=== PATIENT | male | born 1940 ===

== ENCOUNTER 2016-11-30 12:52 | Day surgery (SDC) | payer OTHER ==
[2016-11-29 14:12] VITALS: BMI 28.3
[2016-11-30] MEDS ORDERED: Iodixanol 320 MG/ML 100 ML BOTTLE IV ONE (14:47)
[2016-11-30] MEDS ORDERED: Midazolam 2 MG/2 ML VIAL ONE (15:37)
--- NOTE | 2016-12-01 03:12 | CARDCATH ---
PROCEDURE DATE: 11/30/2016 INDICATIONS: Mr. Leon Haskins is a 76-year-old male with past medical history significant for hypertension, diabetes, and hyperlipidemia, who presented to [facility] with complaints of chest pain, exertional in nature ongoing for about two weeks prior to presentation accompanied with shortness of breath. PROCEDURE PERFORMED: Left heart catheterization with selective left and right coronary angiogram. Left ventriculogram, 6-Tristanian right femoral arterial access, Mynx closure device for hemostasis. TECHNIQUES OF PROCEDURE: After obtaining informed consent, the patient was brought to the cardiac catheterization suite in post-absorptive, non-sedated state. The patient was prepped and draped in the usual sterile fashion. A 2% lidocaine was used for infiltration of anesthesia. Using modified Seldinger technique, a 6-Tristanian sheath was introduced into the right femoral artery. Subsequently, over a J-wire, JL-4 and JR-4 diagnostic catheters were used to engage the left and right coronary systems. Angiograms were obtained in different orthogonal views. Subsequently over the J-wire, the pigtail catheter was advanced into the LV and LV gram was obtained in the AGUILAR view. HEMODYNAMICS: Left ventricular end-diastolic pressure was 22 mmHg. There was no gradient noted upon the aortic valve. There was no AI and no PR. Left ventricular ejection fraction estimated to be 50% to . CORONARY ANATOMY: The left main large-sized vessel, bifurcates into left anterior descending and left circumflex coronary artery. Left anterior descending artery, large-size vessel, has mid 75% stenosis after the first diagonal branch. The first diagonal branch has ostial 50% stenosis. Left circumflex, large size vessel, is severely ectatic with JAVIER 2 flow, gives three obtuse marginal branches left dominant circulation. Right coronary artery, small, nondominant with patent stents. IMPRESSION: Severe mid left anterior descending stenosis. RECOMMENDATIONS: The patient is to continue dual-antiplatelet therapy, guideline-directed therapy for coronary artery disease. The patient is to undergo planned intervention of the mid LAD in two weeks' time at [facility]. Dale Blanc MD
[2016-12-01] MEDS ORDERED: Enoxaparin 40 mg Syringe SC SCH (10:00)
[2016-12-01 16:30] VITALS: RESP 20; O2SAT 99
== END 2016-11-30 17:30 | disposition short-term general hospital (02) ==
LOC: C.CATHLAB 12:52
PROVIDERS: ATTEND Internal Medicine Interventional Cardiology
DX: I25.10 Atherosclerotic heart disease of native coronary artery without angina pectoris (principal); I10 Essential (primary) hypertension; E11.9 Type 2 diabetes mellitus without complications; E78.5 Hyperlipidemia, unspecified
CPT/HCPCS: 93458; 94770; J1644; J2250; J3010; Q9967

== ENCOUNTER 2017-10-09 12:12 | Day surgery (SDC) | payer MEDICARE ==
[2017-10-09 13:35] VITALS: BMI 29.2
[2017-10-09 13:59] LABS: HEMOGLOBIN 14.1 g/dL (12.0-18.0); MEAN CELL VOLUME 89.1 fL (80.0-94.0); MEAN CORPUSCULAR HEMOGLOBIN 31.1 pg (27.0-31.0); MEAN CORPUSCULAR HGB CONC 34.9 g/dL (33.0-37.0); MEAN PLATELET VOLUME 9.1 fL (7.2-11.7); RBC 4.55 Mil/uL (4.40-5.90); RED CELL DISTRIBUTION WIDTH 14.1 % (11.5-14.5); WHITE BLOOD COUNT 6.8 K/uL (4.8-10.8)
[2017-10-09 14:12] LABS: CALCIUM 8.7 mg/dl (8.6-10.4); GFR NON-AFRICAN AMERICAN > 60
[2017-10-09 14:13] LABS: INR 1.1
[2017-10-09 14:20] LABS: BLOOD UREA NITROGEN 17 mg/dL (9-20)
[2017-10-09] MEDS ORDERED: Lidocaine Hydrochloride 5 ML INJ ONE (14:35)
[2017-10-09] MEDS ORDERED: ceFAZolin 1 gm FROZEN Premix 1 GM/50 ML ML IVPB ONE (14:38)
[2017-10-09] MEDS ORDERED: Lidocaine 2% MPF (5 ml) Inj ONE (14:46)
--- NOTE | 2017-10-10 06:35 | OP ---
Copied To: William José MD Attending MD: William José MD PROCEDURE DATE: 10/09/2017 PREPROCEDURE DIAGNOSES: Palpitations, near syncope, known coronary disease, and ventricular premature contractions. POSTPROCEDURE DIAGNOSES: Palpitations, near syncope, known coronary disease, and ventricular premature contractions. PROCEDURE: Medtronic Reveal LINQ 110, serial number [id number], loop recorder insertion. SURGEON: William José MD. REFERRING PHYSICIAN: Mo Luna MD RISKS: The risks of the procedure were described in detail and include bleeding and infection. They were described and informed consent was obtained. PROCEDURE IN DETAIL: After informed consent was obtained, the patient was brought to the electrophysiology lab to our holding area. After infusion of IV antibiotic, the anterior chest was prepped widely. The fourth intercostal space two fingerbreadths to the left of the sternum was identified and 1% lidocaine was infiltrated locally. The Medtronic LINQ incision tool was utilized to make a small incision and the plunger was utilized to insert the loop recorder. A small amount of electrocautery was utilized to obtain hemostasis. The wound was then covered with Steri-Strips and then with a Telfa and Tegaderm. IMPRESSION: Successful Medtronic LINQ loop recorder insertion. COMPLICATIONS: None. POSTPROCEDURE CARE: 1. The patient should not get incision wet for about three days. 2. Steri-Strips will fall off in about two weeks. 3. Please remove dressing in three days. 4. Please follow up in my office at [facility] [place] in two to three weeks. 5. Please call my office at [phone] with any questions. Please fax a copy of this to my office at [facility] as well as Dr. Mo Luna. William José MD
--- NOTE | 2017-10-10 17:08 | CARD ---
APPROVED REPORT Date of service: 10/09/2017 EKG Measurement Heart [id number] <Conclusion> Normal sinus rhythm Right bundle branch block Abnormal ECG
== END 2017-10-09 16:15 | disposition home or self-care (01) ==
LOC: C.SPRAD 12:12
PROVIDERS: ATTEND Internal Medicine
DX: R00.2 Palpitations (principal); I25.10 Atherosclerotic heart disease of native coronary artery without angina pectoris; I45.10 Unspecified right bundle-branch block
CPT/HCPCS: 33282; 36415; 80048; 85027; 85610; 85730; 93005; C1764; J0690